=== PATIENT | male | born 1995 | race Hispanic/Latino ===

== ENCOUNTER 2023-01-04 12:49 | Outpatient (CLI) | payer SELFPAY ==
[2023-01-04 14:05] LABS: #Basophils 0.1 10x3/uL (0.0-0.2); #Eosinphils 0.1 10x3/uL (0.0-0.5); #Monocytes 0.5 10x3/uL (0.0-1.1); #Neutrophils 6.1 10x3/uL (1.5-8.4); %Basophils 0.5 % (0.0-2.0); %Lymphocytes 31.9 % (18.0-47.0); %Neutrophils 61.1 % (40.0-75.0); Hemoglobin 14.6 g/dL (13.5-17.5); Mean Corpuscular HGB CONC 32.8 g/dL (32.0-36.0); Mean Corpuscular Volume 82.4 fl (81.2-95.1); Mean Platelet Volume 10.6 fl (7.4-10.4); Platelet Count 439 10x3/uL (150-450); RBC Distribution Width 13.2 % (11.5-14.5)
[2023-01-04 14:08] LABS: Bilirubin Neg (Negative); Blood, Urine 150 (Negative); Glucose, Urine (Dipstick) Normal (Negative); Ketone, Urine 5 mg/dL (Negative); Leukocyte 25 (Negative); Nitrite Negative (Negative); Protein, Urine (Dipstick) 15 mg/dl (Neg-Trace); Urobilinogen Normal mg/dL (Less than 2)
[2023-01-04 14:12] LABS: Clarity Hazy (Clear)
== END 2023-01-04 12:50 | disposition home or self-care (01) ==
LOC: LABBT 12:49
PROVIDERS: ATTEND Orthopaedic Surgery Hand Surgery
DX: Z01.812 Encounter for preprocedural laboratory examination (principal); S62.324 Displaced fracture of shaft of fourth metacarpal bone, right hand
CPT/HCPCS: 81003; 85025

== ENCOUNTER 2023-01-08 08:56 | Day surgery (SDC) | payer OTHER ==
[2023-01-07 10:24] VITALS: BMI 43.4
[2023-01-08] MEDS ORDERED: Bupivacaine PF 0.5% 30 ML VIAL ONE ×2 (09:43→10:04)
[2023-01-08] MEDS ORDERED: fentaNYL 50 mcg/mL 1 mL Vial ONE (09:43)
[2023-01-08] MEDS ORDERED: Midazolam HCl 2 mg/2 ml Vial ONE (09:43)
[2023-01-08] MEDS ORDERED: Bacitracin Zinc Ointment 30 gm TUBE ONE (10:04)
[2023-01-08] MEDS ORDERED: Bupivacaine HCl 0.5%/Epinephrine 1:200,000/PF 30 ml Vial ONE (10:07)
[2023-01-08] MEDS ORDERED: CEFAZOLIN 2 GM VIAL ONE (10:35)
[2023-01-08] MEDS ORDERED: Sodium Chloride 0.9% 100 ML ONE (10:35)
[2023-01-08] MEDS ORDERED: fentaNYL PF 100 MCG/2 ML SYRINGE ONE (10:36)
[2023-01-08] MEDS ORDERED: Metoclopramide HCl 10 MG/2 ML VIAL ONE (10:48)
[2023-01-08] MEDS ORDERED: Lidocaine 1% PF 5 ML VIAL ONE (10:48)
[2023-01-08] MEDS ORDERED: PROPOFOL 200 MG/20 ML VIAL ONE (10:48)
[2023-01-08] MEDS ORDERED: Ketorolac Tromethamine 30 MG/ML VIAL ONE (10:48)
[2023-01-08] MEDS ORDERED: Dexamethasone 20 MG/5 ML VIAL ONE (10:48)
[2023-01-08] MEDS ORDERED: Ondansetron PF 4 MG/2 ML Vial ONE ×2 (10:48→12:53)
[2023-01-08] MEDS ORDERED: Promethazine HCl 25 MG/ML VIAL ONE ×2 (13:09→13:26)
== END 2023-01-08 15:25 | disposition home or self-care (01) ==
LOC: SDC 08:56
PROVIDERS: ATTEND Orthopaedic Surgery Hand Surgery
PROC: 0PUP0KZ Supplement Right Metacarpal with Nonautologous Tissue Substitute, Open Approach (ICD-10-PCS; principal; 2023-01-08)
PROC: 0PSP04Z Reposition Right Metacarpal with Internal Fixation Device, Open Approach (ICD-10-PCS; principal; 2023-01-08)
DX: S62.324P Displaced fracture of shaft of fourth metacarpal bone, right hand, subsequent encounter for fracture with malunion (principal); F17.210 Nicotine dependence, cigarettes, uncomplicated; W20.8XXD Other cause of strike by thrown, projected or falling object, subsequent encounter
CPT/HCPCS: C1713; J1100; J1885; J2250; J2405; J2550; J2704; J2765; J3010; J3490; S0020